=== PATIENT | female | born 1980 | race Caucasian/White ===

== ENCOUNTER 2018-03-25 15:46 | Emergency (ER) | payer SELFPAY ==
[~2018-03-25] VITALS: Ht 165.1 cm; Wt 86.2 kg
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
== END 2018-03-25 17:02 | disposition left against medical advice (07) ==
LOC: ER 15:49
DX: Z53.21 Procedure and treatment not carried out due to patient leaving prior to being seen by health care provider (principal)
CPT/HCPCS: A4606